=== PATIENT | female | born 1990 | race African-American/Black ===

== ENCOUNTER 2018-11-22 23:52 | Emergency (ER) | payer MEDICARE ==
[~2018-11-22] VITALS: Ht 182.9 cm; Wt 102.0 kg
[2018-11-23 00:23] LABS: BASOPHILS % 0.9 % (0.0-2.0); EOSINOPHILS % 0.1 % (0.0-5.0); HEMOGLOBIN. 12.8 g/dL (12.0-16.0); LYMPHOCYTES % 7.5 % (20.0-50.0); MEAN CORPUSCULAR HEMOGLOBIN 30.8 pg (28.0-32.0); MEAN CORPUSCULAR VOLUME 91.2 fL (81.0-99.0); MEAN PLATELET VOLUME 7.6 fl (7.4-10.4); NEUTROPHILS % 85.5 % (40.0-76.0); PLATELET 391 x1000/uL (130-400); RED BLOOD CELL COUNT 4.16 mill/uL (4.2-5.4); RED CELL DISTRIBUTION WIDTH 13.7 % (11.6-14.6)
[2018-11-23 00:28] LABS: CHLORIDE 105 mEq/L (98-107)
[2018-11-23 00:34] LABS: ETHANOL BLOOD < 10 mg/dL
[2018-11-23 00:37] LABS: HCG SCREEN NEGATIVE
[2018-11-23] MEDS ORDERED: SODIUM CHLORIDE 0.9% 1,000 ML IV ONE (00:43)
[2018-11-23] MEDS ORDERED: LORAZEPAM 2MG/ML CPJ IV ONE (01:00)
[2018-11-23] MEDS ORDERED: POTASSIUM CHLORIDE 20MEQ TABLET SR PO ONE (01:15)
[2018-11-23] MEDS ORDERED: OLANZAPINE 5MG TABLET ODT PO ONE (01:15)
[2018-11-23 04:43] LABS: CLARITY URINE CLEAR (CLEAR); COLOR URINE YELLOW (YELLOW); KETONES URINE NEGATIVE (NEGATIVE); LEUKOCYTE ESTERASE URINE NEGATIVE (NEGATIVE); NITRITE URINE NEGATIVE (NEGATIVE); OCCULT BLOOD URINE TRACE (NEGATIVE); PH URINE 7.5 (4.5-8.0); PROTEIN URINE NEGATIVE (NEGATIVE); SPECIFIC GRAVITY URINE 1.002 (1.005-1.030); UROBILINOGEN URINE 0.2 E.U./dL (0.2-1.0)
[2018-11-23 13:50] VITALS: BP 129/62
[2018-11-23 16:40] LABS: OPIATES URINE SCREEN NEGATIVE (NEGATIVE); PHENCYCLIDINE URINE SCREEN NEGATIVE (NEGATIVE)
[2018-11-23 16:41] LABS: *AMPHETAMINES SCREEN URINE NEGATIVE (NEGATIVE); *BARBITURATES SCREEN URINE NEGATIVE (NEGATIVE); *COCAINE SCREEN URINE NEGATIVE (NEGATIVE)
[2018-11-23 16:42] LABS: *BENZODIAZEPINES SCREEN URINE NEGATIVE (NEGATIVE)
[2018-11-23 16:43] LABS: METHADONE URINE SCREEN NEGATIVE (NEGATIVE)
[2018-11-23 16:58] LABS: CANNABINOID URINE SCREEN PRESUMTIVE POSITIVE (NEGATIVE)
== END 2018-11-23 14:33 | disposition home or self-care (01) ==
LOC: ER 23:52
DX: R41.82 Altered mental status, unspecified (principal); R45.851 Suicidal ideations; D72.829 Elevated white blood cell count, unspecified; F12.10 Cannabis abuse, uncomplicated; Z59.0 Homelessness
CPT/HCPCS: 36415; 71045; 80053; 80305; 80307; 80320; 80329; 81003; 84703; 85025; 96361; 96374; 99284; J2060; J7030; G0480